=== PATIENT | female | born 1945 | race Caucasian/White ===

== ENCOUNTER 2016-10-19 17:01 | Emergency (ER) | payer MEDICARE, OTHER ==
[~2016-10-19] VITALS: Ht 147.3 cm; Wt 55.8 kg
[~2016-10-19 17:01] MED LIST: AMLO5TAB2 PO; ATOR40TA59 PO; CALC-77 PO; LISI40TA PO; METO25TA4 PO; OMEG1CAP16 PO; RISE35TA3 PO
[2016-10-19 17:05] VITALS: BP 201/88
[2016-10-19] MEDS ORDERED: NAPROXEN 250 MG TABLET PO ONE (17:30)
--- NOTE | 2016-10-19 17:34 | ED.ADGEN ---
Past Medical History Past Medical History: Arthritis, High Cholesterol, Hypertension, URI, Other Additional Past Medical Histor: SARCOID, Past Surgical History: Hysterectomy, Tonsillectomy, Other Additional Past Surgical Histo: MMK,HERNIA,CYST FROM THROAT REMOVED. Alcohol Use: None Drug Use: None Adult General Chief Complaint Chief Complaint: MECHANICAL FALL HPI HPI Patient is a 71 year woman old history of hypertension, hypothyroidism, who presents to the emergency department with a complaint of left hand pain. Patient states that she was on her way to 4:00 mass at [employer] when she tripped on the asphalt and fell forward. She tried to break her fall with her left hand , landing on her left hand and left knee, also striking her nose and glasses against the pavement, she has a small abrasion on her left upper eyelid, and on the bridge of her nose, denies any loss of consciousness, any weakness, numbness , tingling, headache, vision changes, neck pain, or pain in any location aside from her left hand and left knee. Patient states that her fingers "bent back" on her left hand, especially her fifth digit. She noted swelling in her left hand immediately, states that she was able to get up and ambulate without difficulty, although he does have pain in her left knee as stated, she went home and placed ice on her hand without relief. Hasn't taken any medications prior to come to the ED, although she did take her home medications as scheduled today. Noted to be hypertensive upon arousing emergency department, blood pressure 201/88, heart rate is in the 80s, oxygen saturation is 97% on room air respiratory rate is 18 and unlabored. Patient denies any preceding symptoms, no chest pain, shortness breath, no nausea, no vomiting, no other recent injuries or complaints. She does not use any anticoagulants. Patient's tetanus status is up-to-date. Review of Systems Review of Systems Constitutional: Denies fever or chills. [] Eyes: Denies change in visual acuity. [] HENT: Denies nasal congestion or sore throat. [] Respiratory: Denies cough or shortness of breath. [] Cardiovascular: Denies chest pain or edema. [] GI: Denies abdominal pain, nausea, vomiting, bloody stools or diarrhea. [] : Denies dysuria. [] Musculoskeletal: Denies back pain, complaining of pain in the left knee with flexion and extension, and pain and swelling in the left hand. Integument: Denies rash. [] Neurologic: Denies headache, focal weakness or sensory changes. [] Endocrine: Denies polyuria or polydipsia. [] Lymphatic: Denies swollen glands. [] Psychiatric: Denies depression or anxiety. [] Current Medications Current Medications Current Medications Medications (Trade) Dose Ordered Sig/Jessica Start Time Stop Time Status Last Admin Dose Admin Naproxen (Naprosyn) 250 mg 1X ONCE 10/19/16 17:30 10/19/16 17:31 DC 10/19/16 17:52 250 MG Oxycodone/ Acetaminophen (Percocet 7.5/ 325) 1 tab 1X ONCE 10/19/16 18:00 10/19/16 18:01 DC 10/19/16 18:07 1 TAB Allergies Allergies Allergies Coded Allergies Type Severity Reaction Last Updated Verified No Known Allergies Allergy Unknown 08/17/14 Yes Physical Exam Physical Exam Constitutional: Well developed, well nourished, no acute distress, non-toxic appearance. [] HENT: Normocephalic, patient with a small abrasion across the bridge of her nose , and abrasion above the left eye between the eyebrow and eyelid, no involvement of the eye itself, no lacerations, no significant swelling, no hemotympanum or septal hematoma, no dental or mucosal involvement, bilateral external ears normal, oropharynx moist, no oral exudates, nose normal. [] Eyes: PERRLA, EOMI, conjunctiva normal, no discharge. [] Neck: Normal range of motion, no tenderness, supple, no stridor. [] Cardiovascular:Heart rate regular rhythm, no murmur, S1, S2, rubs or gallops. [] Lungs & Thorax: Bilateral breath sounds clear to auscultation, no wheezing, rhonchi, rales. No chest wall tenderness or crepitus. [] Abdomen: Bowel sounds normal, soft, no tenderness, no rebound, rigidity, no guarding, no masses, no pulsatile masses. [] Skin: Warm, dry, no erythema, no rash. [] Back: No tenderness, no CVA tenderness. [] Extremities: Patient with swelling of the third through second digits of the left hand proximally, with limited range of motion due to swelling and pain, no lacerations or abrasions identified, no pain with axial loading, no bony deformities identified, no cyanosis, no clubbing, patient with small abrasion noted on the anterior aspect of the left patella, no tenderness to palpation in the joint space, no swelling or effusion identified. [] Neurologic: Alert and oriented X 3, normal motor function, normal sensory function, no focal deficits noted. [] Psychologic: Affect normal, judgement normal, mood normal. [] Current Patient Data Vital Signs Vital Signs Date Time Temp Pulse Resp B/P (MAP) Pulse Ox O2 Delivery O2 Flow Rate FiO2 10/19/16 17:05 97.6 81 18 201/88 (125) 95 Room Air 97.6 EKG EKG Not indicated. [] Radiology/Procedures Radiology/Procedures Left hand film: Three-view: Patient with fracture that is nondisplaced through the base of the proximal phalanx of digit 3 and 4, no other fractures or other abnormalities identified. As interpreted by me. Left wrist film: Three-view: Fractures above noted again on this image, wrists images do not reveal any evidence of acutely concerning findings, patient noted to have significant degenerative joint disease. As interpreted by me. Left knee film: 4 view: No fracture, subluxation, soft tissue or bony abnormalities identified. As interpreted by me. Course & Med Decision Making Course & Med Decision Making Pertinent Labs and Imaging studies reviewed. (See chart for details) Patient with swelling noted in the left hand, tenderness throughout the hand although she is able to flex and extend fingers at his with pain and some difficulty. No pain with axial loading. No tenderness in the location of the forearm or wrist, tenderness palpation in the left knee, x-rays obtained of the hand, wrist, and knee on the left. I discussed with patient the risk of an occult head injury, with her history of fall with abrasion as stated, patient has no other risk factors, states she understands this possible risks, but at this point we will continue watchful waiting, and if she develops concerning symptoms and reassess need for additional imaging. Patient received naproxen, ice pack in the emergency department awaiting x-rays. X-rays reveal fracture at the base of the proximal phalanx of 3 and 4 on the left hand, no other maladies identified. Fracture nondisplaced. Findings as above were discussed with patient , a splint was applied with good effect, patient was instructed to follow-up with hand surgery for additional evaluation, given contact information for Dr. Jules, to call on Friday or Friday, also instructed to contact her insurance company to ensure that she does have coverage with this provider. We discussed concerning symptoms that prompt return to the emergency department, patient was given Percocet and naproxen in the ED, given clear and detailed medication instructions and precautions. Patient and spouse at bedside voiced understanding and agreement with instructions and plan as stated. Patient discharged home in stable condition with plan as above. Dragon Disclaimer Dragon Disclaimer This electronic medical record was generated, in whole or in part, using a voice recognition dictation system. Departure Impression: Primary Impression: Fracture of proximal phalanx of digit of left hand Disposition: HOME, SELF-CARE Condition: IMPROVED Scripts Docusate Sodium (COLACE) 100 Mg Capsule 100 MG PO PRN DAILY Y for CONSTIPATION, #14 CAP Prov: YOSSI PIERCE DO 10/19/16 Naproxen (NAPROXEN) 250 Mg Tablet 250 MG PO PRN BID Y for PAIN, #10 Prov: YOSSI PIERCE DO 10/19/16 Oxycodone/Apap 5-325 (PERCOCET 5-325 MG TABLET) 1 Each Tablet 1 TAB PO PRN Q6HRS Y for PAIN, #12 TAB 0 Refills Prov: YOSSI PIERCE DO 10/19/16 YOSSI PIERCE DO October 19, 2016 17:34
[2016-10-19] MEDS ORDERED: oxyCODONE/APAP 7.5/325 1 TAB TABLET PO ONE (18:00)
[2016-10-19] MEDS ORDERED: NAPR250T2 PO (18:22)
[2016-10-19] MEDS ORDERED: OXYC-323 PO (18:22)
[2016-10-19] MEDS ORDERED: DOCU-27 PO (18:25)
--- NOTE | 2016-10-20 08:03 | RAD ---
EXAM: Left hand, 3 views; left wrist, 3 views; left knee, 4 views. HISTORY: Trauma. COMPARISON: None. FINDINGS: Left hand and wrist: There are mildly displaced fractures of the bases of the third and fourth proximal phalanges. There is severe degenerative subchondral sclerosis and spurring involving the first carpometacarpal joint. There are chronic fragmented spurs surrounding the joint space. There is a small focus of sclerosis within the distal radial metaphysis, possibly a bone island. Left knee: Frontal, lateral, oblique and sunrise views of the left knee are obtained. There is no fracture, dislocation or subluxation. There is no significant effusion. There is a bone island within the proximal tibial metaphysis. IMPRESSION: 1. Mild displaced fractures of the bases of the left third and fourth proximal phalanges. 2. Severe left first carpometacarpal osteoarthritis with chronic fragmented spurs.
== END 2016-10-19 18:32 | disposition home or self-care (01) ==
LOC: ER 17:09
DX: S62.643A Nondisplaced fracture of proximal phalanx of left middle finger, initial encounter for closed fracture (principal); S62.645A Nondisplaced fracture of proximal phalanx of left ring finger, initial encounter for closed fracture; S00.212A Abrasion of left eyelid and periocular area, initial encounter; S00.31XA Abrasion of nose, initial encounter; M25.562 Pain in left knee; E78.00 Pure hypercholesterolemia, unspecified; I10 Essential (primary) hypertension; M19.90 Unspecified osteoarthritis, unspecified site; Z90.710 Acquired absence of both cervix and uterus; W01.0XXA Fall on same level from slipping, tripping and stumbling without subsequent striking against object, initial encounter; Y93.89 Activity, other specified; Y99.8 Other external cause status; Y92.89 Other specified places as the place of occurrence of the external cause
CPT/HCPCS: 29130; 73110; 73130; 73564; 99284-25

== ENCOUNTER → 2017-01-01 | Outpatient (CLI) | payer OTHER ==
[~2017-01-01] MED LIST changes: +DOCU-109 PO; +NAPR250T2 PO; -OMEG1CAP16 PO; +OMEG1CAP27 PO; +OXYC-323 PO
--- NOTE | 2017-01-01 13:27 | CARD ---
APPROVED REPORT EXAM: Two-dimensional and M-mode echocardiogram with Doppler and color Doppler. Other Information Quality : GoodHR: 61bpm Rhythm : NSR INDICATION PSVT RISK FACTORS Hypertension Hyperlipidemia 2D DIMENSIONS RVDd2.8 (2.9-3.5cm)Left Atrium(2D)3.9 (1.6-4.0cm) IVSd1.1 (0.7-1.1cm)LVDd4.0 (3.9-5.9cm) LVOT Diameter2.1 (1.8-2.4cm)PWd1.1 (0.7-1.1cm) LVDs2.2 (2.5-4.0cm)FS (%) 45.4 % SV54.2 mlLVEF(%)77.3 (>50%) Aortic Valve AoV Peak Jonah.167.3cm/sAoV VTI36.9cm AO Peak GR.11.2mmHgLVOT Peak Jonah.118.0cm/s AO Mean GR.6mmHgAVA (VMAX)2.44cm2 Mitral Valve MV E Npbrjocp381.2cm/sMV DECEL [id number] MV A Yqdmraim99.3cm/sE/A Ratio1.1 MV A Udqjfaai04hy Pulmonary Valve PV Peak Rxkwfmji295.8cm/s Tricuspid Valve TR P. Ioszsnem954cj/sTR Peak Gr.38mmHg Pulmonary Vein S1 Qtlrmrvj86.0cm/sD2 Sdjbegtu01.4cm/s PVa aikfdzye38atzm LEFT VENTRICLE The left ventricle is normal size. There is mild concentric left ventricular hypertrophy. The left ve ntricular systolic function is normal. The Ejection Fraction is 65-70%. There is normal LV segmental wall motion. The left ventricular diastolic function and filling is normal for age. RIGHT VENTRICLE The right ventricle is normal size. There is normal right ventricular wall thickness. The right ventr icular systolic function is normal. ATRIA The left atrium is mildly dilated. The right atrium size is normal. The interatrial septum is intact with no evidence for an atrial septal defect or patent foramen ovale as noted on 2-D or Doppler imagi ng. AORTIC VALVE The aortic valve is mildly sclerotic. The aortic valve is trileaflet. Doppler and Color Flow revealed no significant aortic regurgitation. There is no significant aortic valvular stenosis. MITRAL VALVE Mitral annular calcification is mild. The mitral valve leaflets are thickened. There is no evidence o f mitral valve prolapse. There is no mitral valve stenosis. Doppler and Color Flow revealed trace britt ral regurgitation. TRICUSPID VALVE Doppler and Color Flow revealed mild tricuspid regurgitation. The pulmonary artery systolic pressure is estimated at 41 mmHg. There is mild pulmonary hypertension. PULMONIC VALVE The pulmonary valve is not well visualized but appears to opens well. Doppler and Color Flow revealed trace pulmonic valvular regurgitation. There is no pulmonic valvular stenosis by spectral Doppler. GREAT VESSELS The aortic root is normal in size. The ascending aorta is mildly dilated. The pulmonary artery is nor mal. The IVC is normal in size and collapses >50% with inspiration. PERICARDIAL EFFUSION There is a small loculated posterior pericardial effusion. Critical Notification Critical Value: No <Conclusion> The left ventricular systolic function is normal. The Ejection Fraction is 65-70%. There is normal LV segmental wall motion. Trace mitral regurgitation. Mild tricuspid regurgitation. The pulmonary artery systolic pressure is estimated at 41 mmHg.
== END | disposition home or self-care (01) ==
LOC: ECHO 08:46
PROVIDERS: ATTEND Internal Medicine Cardiovascular Disease
DX: I08.1 Rheumatic disorders of both mitral and tricuspid valves (principal); I47.1 Supraventricular tachycardia; E78.5 Hyperlipidemia, unspecified; I10 Essential (primary) hypertension; I27.2 Other secondary pulmonary hypertension
CPT/HCPCS: 93306

== ENCOUNTER → 2017-04-04 | Outpatient (CLI) | payer OTHER ==
[~2017-04-04] MED LIST changes: -NAPR250T2 PO; +NAPR250T6 PO
--- NOTE | 2017-04-04 15:50 | RAD ---
DATE: 04/04/2017. EXAM: DIGITAL SCREEN BILAT W/CAD. HISTORY: Routine mammographic screening. COMPARISON: 09/15/2014. This study was interpreted with the benefit of Computerized Aided Detection (CAD). FINDINGS: The breast parenchyma is heterogeneously dense, which could reduce sensitivity of mammography. Breast parenchyma level C.. There are no suspicious masses, microcalcifications or architectural distortion. A density superiorly on the left is consistent with an intraparenchymal lymph node and has stable correlate previously. Another slightly superiorly on the left MLO view also has stable correlates given differences in projection. BI-RADS CATEGORY: 2 BENIGN FINDING(S). RECOMMENDED FOLLOW-UP: 12M 12 MONTH FOLLOW-UP. PQRS compliance statement: Patient information was entered into a reminder system with a target due date 04/04/2018 for the next mammogram. Mammography is a sensitive method for finding small breast cancers, but it does not detect them all and is not a substitute for careful clinical examination. A negative mammogram does not negate a clinically suspicious finding and should not result in delay in biopsying a clinically suspicious abnormality. "Our facility is accredited by the [employer] Mammography Program."
== END | disposition home or self-care (01) ==
LOC: MAMMO 08:53
PROVIDERS: ATTEND Family Medicine
DX: Z12.31 Encounter for screening mammogram for malignant neoplasm of breast (principal)
CPT/HCPCS: G0202; 77067

== ENCOUNTER → 2017-08-27 | Outpatient (CLI) | payer OTHER | END | disposition home or self-care (01) | LOC: US 10:20 | DX: R22.0 Localized swelling, mass and lump, head (principal); I10 Essential (primary) hypertension; E78.5 Hyperlipidemia, unspecified | CPT/HCPCS: 76536 ==

== ENCOUNTER → 2019-01-07 | Outpatient (CLI) | payer OTHER ==
[~2019-01-07] MED LIST changes: +AMLO5TAB10 PO; -AMLO5TAB2 PO; +LISI-130 PO; -LISI40TA PO; -OXYC-323 PO; +OXYC1TAB15 PO
--- NOTE | 2019-01-07 11:11 | CARD ---
MR#: [id number] Date of Study: 01/07/2019 Ordering Physician: JASSI ADAMS, Referring Physician: JASSI ADAMS Tech: Fernanda Hines MAGALI APPROVED REPORT EXAM: Two-dimensional and M-mode echocardiogram with Doppler and color Doppler. Other Information Quality : AverageHR: 60bpm Rhythm : NSR INDICATION Arrhythmia 2D DIMENSIONS RVDd3.2 (2.9-3.5cm)Left Atrium(2D)4.4 (1.6-4.0cm) IVSd1.0 (0.7-1.1cm)Aortic Root(2D)2.7 (2.0-3.7cm) LVDd3.9 (3.9-5.9cm)LVOT Diameter1.9 (1.8-2.4cm) PWd1.0 (0.7-1.1cm)LVDs2.7 (2.5-4.0cm) FS (%) 31.2 %SV38.3 ml LVEF(%)60.0 (>50%) Aortic Valve AoV Peak Jonah.133.8cm/sAoV VTI29.9cm AO Peak GR.7.2mmHgLVOT Peak Jonah.99.5cm/s AO Mean GR.3mmHgAVA (VMAX)2.12cm2 TRICIA (VTI)2.20cm2 Mitral Valve MV E Prnoodyz38.7cm/sMV DECEL [id number] MV A Gdfojshz89.2cm/sE/A Ratio1.2 Pulmonary Valve PV Peak Mfwmbbfo41.7cm/s Tricuspid Valve TR P. Ysmsdobt852iy/sRAP ZOHFCIIJ4rmBv TR Peak Gr.02hmXsZSLH35ncAd Pulmonary Vein S1 Tcylggjn72.5cm/sD2 Xztmeqkm04.9cm/s LEFT VENTRICLE The left ventricle is normal size. There is normal left ventricular wall thickness. The left ventricu lar systolic function is normal and the ejection fraction is within normal range. The Ejection Fracti on is 60-65%. There is normal LV segmental wall motion. Transmitral Doppler flow pattern is Grade II- pseudonormal filling dynamics. RIGHT VENTRICLE The right ventricle is normal size. There is normal right ventricular wall thickness. The right ventr icular systolic function is normal. ATRIA The left atrium is mildly dilated. The right atrium size is normal. The interatrial septum is intact with no evidence for an atrial septal defect or patent foramen ovale as noted on 2-D or Doppler imagi ng. AORTIC VALVE The aortic valve is normal in structure and function. The aortic valve is trileaflet. Doppler and Col or Flow revealed no significant aortic regurgitation. There is no significant aortic valvular stenosi s. There is no aortic valvular vegetation. MITRAL VALVE The mitral valve is normal in structure and function. There is no evidence of mitral valve prolapse. There is no mitral valve stenosis. Doppler and Color-flow revealed trace to mild mitral regurgitation . TRICUSPID VALVE The tricuspid valve is normal in structure and function. Doppler and Color Flow revealed trace tricus pid regurgitation. The PA pressure was estimated at 38 mmHg. There is no tricuspid valve prolapse or vegetation. There is no tricuspid valve stenosis. PULMONIC VALVE The pulmonic valve is not well visualized. Doppler and Color Flow revealed no pulmonic valvular regur gitation. There is no pulmonic valvular stenosis. GREAT VESSELS The aortic root is normal in size. The ascending aorta is normal in size. The IVC is normal in size a nd collapses >50% with inspiration. PERICARDIAL EFFUSION There is no evidence of significant pericardial effusion. Critical Notification Critical Value: No <Conclusion> The left ventricle is normal size. The left ventricular systolic function is normal and the ejection fraction is within normal range. The Ejection Fraction is 60-65%. There is no significant aortic valvular stenosis. Doppler and Color Flow revealed no significant aortic regurgitation. Doppler and Color-flow revealed trace to mild mitral regurgitation. Doppler and Color Flow revealed trace tricuspid regurgitation. The PA pressure was estimated at 38 mmHg. Signed by : Julian Valera MD Electronically Approved : 01/07/2019 11:11:37
== END | disposition home or self-care (01) ==
LOC: ECHO 07:51
PROVIDERS: ATTEND Internal Medicine Cardiovascular Disease
DX: I34.0 Nonrheumatic mitral (valve) insufficiency (principal); I47.1 Supraventricular tachycardia
CPT/HCPCS: 93306

== ENCOUNTER 2019-04-18 10:18 | Emergency (ER) | payer OTHER ==
[~2019-04-18] VITALS: Ht 147.3 cm; Wt 56.7 kg
[2019-04-18 10:47] LABS: BASO # 0.1 x10^3/uL (0.0-0.2); BASO % 1 % (0-3); EOS # 0.2 x10^3/uL (0.0-0.7); EOS % 2 % (0-3); HEMATOCRIT 42.9 % (36.0-47.0); HEMOGLOBIN 14.8 g/dL (12.0-15.5); LYMPH # 1.9 x10^3/uL (1.0-4.8); LYMPH % 23 % (24-48); MEAN CORPUSCULAR HEMOGLOBIN 32 pg (25-35); MEAN CORPUSCULAR HGB CONC 34 g/dL (31-37); MEAN CORPUSCULAR VOLUME 94 fL (79-100); MONO # 0.7 x10^3/uL (0.0-1.1); MONO % 9 % (0-9); NEUT # 5.3 x10^3/uL (1.8-7.7); NEUT % 65 % (31-73); PLATELET COUNT 272 x10^3/uL (140-400); RED BLOOD COUNT 4.59 x10^6/uL (3.50-5.40); RED CELL DISTRIBUTION WIDTH 13.6 % (11.5-14.5); WHITE BLOOD COUNT 8.2 x10^3/uL (4.0-11.0)
--- NOTE | 2019-04-18 10:51 | PHYS DOC ---
Past Medical History Past Medical History: Arthritis, High Cholesterol, Hypertension, URI, Other Additional Past Medical Histor: SARCOID, Past Surgical History: Hysterectomy, Tonsillectomy, Other Additional Past Surgical Histo: MMK,HERNIA,CYST FROM THROAT REMOVED. Alcohol Use: None Drug Use: None Adult General Chief Complaint Chief Complaint: RAPID HEART RATE HPI HPI Patient is a 73-year-old female, with a past history of "palpitations", who presents to the emergency department for evaluation. She states she has a history of frequent palpitations, and had fairly steady palpitations yesterday, although did not feel her palpitations as strongly today. She checked her "fit bit", which informed her that her heart rate was high, and thus she came to the emergency department for evaluation. She denies any chest pain, shortness of breath, dizziness or lightheadedness, numbness or weakness. She takes a " blood pressure medication "to help regulate her heartbeat. She has no history of coronary disease. There are no alleviating or exacerbating factors to her symptoms otherwise. Review of Systems Review of Systems Constitutional: Denies fever or chills [] Eyes: Denies change in visual acuity, redness, or eye pain [] HENT: Denies nasal congestion or sore throat [] Respiratory: Denies cough or shortness of breath [] Cardiovascular: No additional information not addressed in HPI [] GI: Denies abdominal pain, nausea, vomiting, bloody stools or diarrhea [] : Denies dysuria or hematuria [] Musculoskeletal: Denies back pain or joint pain [] Integument: Denies rash or skin lesions [] Neurologic: Denies headache, focal weakness or sensory changes [] Endocrine: Denies polyuria or polydipsia [] All other systems were reviewed and found to be within normal limits, except as documented in this note. Current Medications Current Medications Current Medications Medications (Trade) Dose Ordered Sig/Jessica Start Time Stop Time Status Last Admin Dose Admin Aspirin (Children'S Aspirin) 324 mg 1X ONCE 04/18/19 11:00 04/18/19 11:01 DC 04/18/19 10:59 324 MG Lorazepam (Ativan Inj) 2 mg STK-MED ONCE 04/18/19 10:52 04/18/19 10:52 DC Metoprolol Tartrate (Lopressor Vial) 5 mg 1X ONCE 04/18/19 11:15 04/18/19 11:16 DC 04/18/19 11:14 5 MG Potassium Chloride (Klor-Con) 20 meq 1X ONCE 04/18/19 12:00 04/18/19 12:01 DC Sodium Chloride 1,000 ml @ 1,000 mls/hr Q1H 04/18/19 11:00 04/18/19 11:59 DC 04/18/19 10:59 1,000 MLS/HR Allergies Allergies Allergies Coded Allergies Type Severity Reaction Last Updated Verified No Known Drug Allergies 04/18/19 No Physical Exam Physical Exam PHYSICAL EXAM: CONSTITUTIONAL: Well developed, well nourished HEAD: normocephalic, atraumatic EENT: PERRL, EOMI. Conjunctivae normal color, sclerae non-icteric; moist mucous membranes. NECK: Supple, non-tender; no meningismus. LUNGS: Lungs CTA, breathing even and unlabored. Normal air movement. HEART: Regular tachycardia, no murmur CHEST: No deformity; non-tender ABDOMEN: The abdomen is soft, and non-tender, no masses or bruits. EXTREM: Normal ROM; no deformity, no calf tenderness. Normal pulses palpable in all extremities. There is no pedal edema. SKIN: No rash; no diaphoresis NEURO: Alert; normal speech and cognition; CN's grossly intact; strength grossly intact without focal deficit. BACK: No CVA TTP. Current Patient Data Vital Signs Vital Signs Date Time Temp Pulse Resp B/P (MAP) Pulse Ox O2 Delivery O2 Flow Rate FiO2 04/18/19 11:14 115 120/74 04/18/19 10:20 97.5 18 98 Room Air 97.5 Lab Values Laboratory Tests Test 04/18/19 10:30 White Blood Count 8.2 x10^3/uL (4.0-11.0) Red Blood Count 4.59 x10^6/uL (3.50-5.40) Hemoglobin 14.8 g/dL (12.0-15.5) Hematocrit 42.9 % (36.0-47.0) Mean Corpuscular Volume 94 fL (79-100) Mean Corpuscular Hemoglobin 32 pg (25-35) Mean Corpuscular Hemoglobin Concent 34 g/dL (31-37) Red Cell Distribution Width 13.6 % (11.5-14.5) Platelet Count 272 x10^3/uL (140-400) Neutrophils (%) (Auto) 65 % (31-73) Lymphocytes (%) (Auto) 23 % (24-48) L Monocytes (%) (Auto) 9 % (0-9) Eosinophils (%) (Auto) 2 % (0-3) Basophils (%) (Auto) 1 % (0-3) Neutrophils # (Auto) 5.3 x10^3/uL (1.8-7.7) Lymphocytes # (Auto) 1.9 x10^3/uL (1.0-4.8) Monocytes # (Auto) 0.7 x10^3/uL (0.0-1.1) Eosinophils # (Auto) 0.2 x10^3/uL (0.0-0.7) Basophils # (Auto) 0.1 x10^3/uL (0.0-0.2) Sodium Level 140 mmol/L (136-145) Potassium Level 3.4 mmol/L (3.5-5.1) L Chloride Level 102 mmol/L (98-107) Carbon Dioxide Level 28 mmol/L (21-32) Anion Gap 10 (6-14) Blood Urea Nitrogen 13 mg/dL (7-20) Creatinine 1.0 mg/dL (0.6-1.0) Estimated GFR (Cockcroft-Gault) 54.3 BUN/Creatinine Ratio 13 (6-20) Glucose Level 105 mg/dL (70-99) H Calcium Level 10.0 mg/dL (8.5-10.1) Magnesium Level 2.1 mg/dL (1.8-2.4) Total Bilirubin 0.5 mg/dL (0.2-1.0) Aspartate Amino Transferase (AST) 21 U/L (15-37) Alanine Aminotransferase (ALT) 22 U/L (14-59) Alkaline Phosphatase 106 U/L (46-116) Troponin I Quantitative < 0.017 ng/mL (0.000-0.055) WK-Ztt-H-Type Natriuretic Peptide 298 pg/mL (0-124) H Total Protein 7.7 g/dL (6.4-8.2) Albumin 4.0 g/dL (3.4-5.0) Albumin/Globulin Ratio 1.1 (1.0-1.7) Thyroid Stimulating Hormone (TSH) 2.385 uIU/mL (0.358-3.74) Free Thyroxine 1.12 ng/dL (0.76-1.46) Laboratory Tests 04/18/19 10:30 Laboratory Tests 04/18/19 10:30 EKG EKG [] Probable sinus tachycardia at a rate of 136 beats for minute, versus atrial flutter, normal axis, normal intervals, nonspecific ST/T changes. Repeat EKG, done at 11:28 AM after 2 doses of metoprolol 5 mg administered intravenously,, shows normal sinus rhythm at a ventricular rate of 65 bpm with frequent APCs, normal axis, normal intervals, nonspecific ST/T changes are present. Radiology/Procedures Radiology/Procedures [] Course & Med Decision Making Course & Med Decision Making Pertinent Labs and Imaging studies reviewed. (See chart for details) [] 11:40 AM: The patient's condition remained stable. Heart rate is in the 60s. I have asked cardiology to come and evaluate the patient I suspect she is safe for discharge home. 12:15 PM: The patient was seen by cardiology, according to the records she is on Cardizem 240 daily, is not currently taking metoprolol. The patient is uncer tain of her medications. I discussed the case with cardiology who would like to start the patient on 25 mg of metoprolol twice daily and the patient is safe to be discharged. Home arrangements will be made for a Holter monitor. The importance of close follow-up and return precautions were discussed with the patient. Dragon Disclaimer Dragon Disclaimer This electronic medical record was generated, in whole or in part, using a voice recognition dictation system. Departure Departure Impression: Primary Impression: Palpitations Disposition: 01 HOME, SELF-CARE Condition: STABLE Referrals: FRANCK MELGOZA MD (PCP) JASSI ADAMS MD Patient Instructions: Palpitations Additional Instructions: Continue your previously prescribed medications. Return to medical care for any new or worsening symptoms, vomiting, shortness breath, dizziness, lightheadedness, or any other new or concerning symptoms. Scripts Metoprolol Tartrate (METOPROLOL TARTRATE) 25 Mg Tablet 1 TAB PO BID, #60 TAB 2 Refills Prov: JERRICA GOLDSTEIN MD 04/18/19 JERRICA GOLDSTEIN MD Apr 18, 2019 10:51
[2019-04-18 10:53] LABS: GFR 54.3; POTASSIUM 3.4 mmol/L (3.5-5.1)
[2019-04-18 10:59] LABS: ALBUMIN/GLOBULIN RATIO 1.1 (1.0-1.7); MAGNESIUM 2.1 mg/dL (1.8-2.4); TOTAL BILIRUBIN 0.5 mg/dL (0.2-1.0); TOTAL PROTEIN 7.7 g/dL (6.4-8.2)
[2019-04-18] MEDS ORDERED: ASPIRIN CHEWABLE 81 MG TABLET. PO ONE (11:00)
[2019-04-18] MEDS ORDERED: METOPROLOL TARTRATE 5 MG/5 ML VIAL. IVP ONE ×2 (11:00→11:15)
[2019-04-18] MEDS ORDERED: IV NORMAL SALINE 1000ML BAG 1,000 ML IV SCH (11:00)
[2019-04-18 11:24] LABS: FREE T4 1.12 ng/dL (0.76-1.46); THYROID STIM HORMONE (TSH) 2.385 uIU/mL (0.358-3.74)
[2019-04-18 12:00] VITALS: BP 136/63
[2019-04-18] MEDS ORDERED: POTASSIUM CHLORIDE 20 MEQ TABLET.ER. PO ONE (12:00)
--- NOTE | 2019-04-18 12:07 | RAD ---
EXAM: CHEST ONE VIEW. HISTORY: Palpitations. COMPARISON: None. FINDINGS: A frontal view of the chest is obtained. The lungs are expanded to the 11th posterior ribs. There are no confluent infiltrates. Interstitial opacities in the bases may indicate atelectasis or scarring. There is no pneumothorax or pleural effusion. The heart is moderately enlarged. There are atherosclerotic calcifications of the aorta. IMPRESSION: 1. Moderate cardiomegaly. 2. Hyperinflation. Correlate for chronic obstructive pulmonary disease. Electronically signed by: Prachi Dao MD (04/18/2019 12:05 PM) [facility]
[2019-04-18] MEDS ORDERED: METO25TA4 PO (12:17)
--- NOTE | 2019-04-18 12:24 | PDOC2 ---
CARDIOLOGY CONSULT NOTE CHEIF COMPLAINT: Palpitations HPI: Very pleasant 73-year-old woman came into the hospital today for evaluation of palpitations. She was seen by our office approximately 2 months ago and at that time was doing quite well. She had denied any specific cardiac symptoms. She does have a rare palpitation episode about once or twice a year and this usually resolves with vagal maneuvers. When she arrived to the ER today she was noted to have heart rates in the 130s suggestive of either an atrial tachycardia or sinus tachycardia. This responded to metoprolol therapy. She denies any recent changes to her medications, diet changes or any increased stressors. The patient and her recently moved to a assisted living facility. She otherwise denies any functional problems at home. PMHX: 1. Paroxysmal supraventricular tachycardia 2. Hypertension 3. Dyslipidemia SOCHX: She is . Denies any alcohol, tobacco or illicit drug use. She is retired. FAMHX: Noncontributory CURRENT MEDS: Current Medications Medications (Trade) Dose Ordered Sig/Jessica Route PRN Reason Start Time Stop Time Status Last Admin Dose Admin Aspirin (Children'S Aspirin) 324 mg 1X ONCE PO 04/18/19 11:00 04/18/19 11:01 DC 04/18/19 10:59 Metoprolol Tartrate (Lopressor Vial) 5 mg 1X ONCE IVP 04/18/19 11:00 04/18/19 11:01 DC 04/18/19 11:00 Sodium Chloride 1,000 ml @ 1,000 mls/hr Q1H IV 04/18/19 11:00 04/18/19 11:59 DC 04/18/19 10:59 Lorazepam (Ativan Inj) 1 mg 1X ONCE IVP 04/18/19 11:15 04/18/19 11:16 DC 04/18/19 11:00 Metoprolol Tartrate (Lopressor Vial) 5 mg 1X ONCE IVP 04/18/19 11:15 04/18/19 11:16 DC 04/18/19 11:14 ALLERGIES: Allergies Coded Allergies Type Severity Reaction Last Updated Verified No Known Drug Allergies 04/18/19 No ROS: Negative unless otherwise mentioned above in history of present illness PHYSICAL EXAM: Vital Signs/I&O: Vital Signs Date Time Temp Pulse Resp B/P (MAP) Pulse Ox O2 Delivery O2 Flow Rate FiO2 04/18/19 11:14 115 120/74 04/18/19 10:20 97.5 18 98 Room Air 97.5 Physical Exam: The patient appeared well nourished and normally developed. Head exam is unremarkable. No scleral icterus or corneal arcus noted. Neck is without jugular venous distension, thyromegaly, or carotid bruits. Carotid upstrokes are brisk bilaterally. Lungs are clear to auscultation and percussion. Cardiac exam reveals the PMI to be normally sized and situated. Rhythm is regular. First and second heart sounds normal. No murmurs, rubs or gallops. Abdominal exam reveals normal bowel sounds, no masses, no organomegaly and no aortic enlargement. Extremities are nonedematous and both femoral and pedal pulses are normal. Msk: No traumua Neuro: No focal deficits DIAGNOSTIC TESTING: EKG initially demonstrated probable atrial tachycardia Repeat EKG with sinus rhythm and PACs Previous echocardiogram reviewed no obvious pathology noted Labs are otherwise grossly unremarkable ASSESSMENT: 1. SVT, paroxysmal cannot rule out atrial tachycardia PLAN: 1. Continue her home diltiazem therapy. We will plan for initiation of metoprolol 25 mg by mouth twice a day. We will have a event monitor sent out to her house and follow-up with her after her monitoring has been completed. Case discussed with ER physician JULIETTE Fraser MD Apr 18, 2019 12:24
--- NOTE | 2019-04-19 07:23 | EKG ---
[facility] [address] [place] [address] Test Date: 2019-04-18 Test Time: 10:25:22 Pat Name: MARISELA SEAMAN Department: Room: Gender: F Customer Success Director: : 1945 Requested By: JERRICA GOLDSTEIN Order Number: [id number] Reading MD: Mitch Howard Measurements Intervals [place] Rate: 136 P: -90 IN: 84 QRS: 13 QRSD: 86 T: 12 QT: 304 QTc: 460 Interpretive Statements SUPRAVENTRICULAR TACHYCARDIA ST & T ABNORMALITY, CONSIDER INFERIOR ISCHEMIA OR LEFT VENTRICULAR STRAIN ABNORMAL ECG Electronically Signed On 04-19-2019 14:16:01 PERSONAL PROPERTY ASSESSOR by Mitch Howard
--- NOTE | 2019-04-19 07:24 | EKG ---
[facility] [address] [place] [address] Test Date: 2019-04-18 Test Time: 11:28:39 Pat Name: MARISELA SEAMAN Department: Room: Gender: F Strategic Partnership Manager: : 1945 Requested By: JERRICA GOLDSTEIN Order Number: [id number] Reading MD: Mitch Howard Measurements Intervals [place] Rate: 64 P: 90 [place]: 160 QRS: 14 QRSD: 86 T: 26 QT: 406 QTc: 422 Interpretive Statements SINUS RHYTHM ATRIAL PREMATURE COMPLEX(ES) ST & T ABNORMALITY, CONSIDER ANTERIOR ISCHEMIA OR LEFT VENTRICULAR STRAIN ABNORMAL ECG Electronically Signed On 04-19-2019 14:25:08 AUTOMOTIVE ACCESSORY INSTALLER by Mitch Howard
--- NOTE | 2019-04-19 07:26 | EKG ---
[facility] [address] [place] [address] Test Date: 2019-04-18 Test Time: 11:30:44 Pat Name: MARISELA SEAMAN Department: Room: Gender: F Logistics Management Specialist: : 1945 Requested By: JERRICA GOLDSTEIN Order Number: [id number] Reading MD: Mitch Howard Measurements Intervals [place] Rate: 69 P: [place]: QRS: 5 QRSD: 86 T: 28 QT: 400 QTc: 434 Interpretive Statements SINUS RHYTHM ATRIAL PREMATURE COMPLEXES T ABNORMALITY IN ANTERIOR LEADS NON SPECIFIC ST DEPRESSION ABNORMAL ECG Electronically Signed On 04-19-2019 14:25:27 GROUP CIO by Mitch Howard
== END 2019-04-18 12:38 | disposition home or self-care (01) ==
LOC: ER 10:18
DX: R00.2 Palpitations (principal); M19.90 Unspecified osteoarthritis, unspecified site; E78.00 Pure hypercholesterolemia, unspecified; I10 Essential (primary) hypertension
CPT/HCPCS: 36415; 71045; 80053; 83735; 83880; 84439; 84443; 84484; 85025; 93005; 96374; 96375; 99285; J2060; J3490; J7030

== ENCOUNTER → 2019-05-07 | Outpatient (CLI) | payer OTHER ==
[2019-04-18 12:00] VITALS: BP 136/63
[~2019-05-07] MED LIST changes: +BUPIVACAINE MPF 0.5% 10 ML VIAL for KCIC. IM ONE; +CONTRAST GIVEN. MC PRN; +IOHEXOL 300 MG/ML 50 ML VIAL. INT ART ONE; +LIDOCAINE 1% Multi-Dose 20 ML VIAL. ID ONE; +methylPREDNISolone SOD SUCC PF 40 MG/ML VIAL. IM ONE
--- NOTE | 2019-05-07 17:27 | KCIC ---
ARTHROCENT MJR JT ASP/INJ LEFT History: Pain Technique: Patient was informed of the risks to include pain, infection, bleeding, nerve or blood vessel injury, allergic reaction. All questions were answered. Patient signed a written consent form for left hip injection for pain therapy. Patient was placed in supine position on the fluoroscopy table. The external skin site overlying left hip was prepped and draped in the usual sterile fashion. Betadine was utilized for cleansing solution. 1% lidocaine was utilized for local anesthesia to the depth of the bone. 22-gauge spinal needle was advanced under fluoroscopy to depth of the bone. Omnipaque contrast was utilized to confirm intra-articular location. Image was saved. Mixture of 4 cc bupivacaine and 80 mg Depo-Medrol were injected during fluoroscopic visualization. Needle was removed. There were no immediate complications. Bandage was applied. Fluoroscopy time 46 seconds. Impression: 1. Successful left hip steroid injection. Electronically signed by: Al Frausto DO (05/07/2019 5:24 PM) [facility]
== END | disposition home or self-care (01) ==
LOC: KCIC 14:12
PROVIDERS: ATTEND Orthopaedic Surgery Sports Medicine
DX: M16.12 Unilateral primary osteoarthritis, left hip (principal)
CPT/HCPCS: 20610; 77002; J2920; Q9967

== ENCOUNTER → 2019-10-25 | Outpatient (CLI) | payer OTHER ==
[~2019-10-25] MED LIST changes: -BUPIVACAINE MPF 0.5% 10 ML VIAL for KCIC. IM ONE; -CONTRAST GIVEN. MC PRN; -IOHEXOL 300 MG/ML 50 ML VIAL. INT ART ONE; -LIDOCAINE 1% Multi-Dose 20 ML VIAL. ID ONE; -methylPREDNISolone SOD SUCC PF 40 MG/ML VIAL. IM ONE
--- NOTE | 2019-10-25 14:03 | CARD ---
MR#: [id number] Date of Study: 10/25/2019 Ordering Physician: JASSI HOWARD, Referring Physician: JASSI HOWARD, Tech: APPROVED REPORT PROCEDURE: Successful implantation of Medtronic Reveal Linq loop recorder INDICATIONS: Assess arrhythmia burden in a patient with paroxysmal supraventricular tachycardia presenting with re current palpitations PROCEDURE DETAILS: An informed consent was obtained from patient. Patient was brought to the procedure suite and her le ft chest and shoulder were prepped and draped in the usual fashion. 20 mL of 2% lidocaine was infilt rated into the skin and subcutaneous tissues for local anesthesia. An incision was made in the left fourth intercostal space 1 inch from midsternal line and using the introducer provided with the kit a track was created in subcutaneous tissue. Subsequently, with the help of the deployer provided with the kit, a Medtronic Reveal Linq loop recorder serial number [id number] was placed in the subcutaneous tissue. The incision was closed iwith steristrips. Hemostasis was secured. Patient tolerated the procedure well. There were no immediate complications. At the end of procedure, the device showed s ensing amplitude of 0.23 mV. CONCLUSION: Successful implantation of Medtronic Reveal Linq loop recorder to assess arrhythmia burden in a patie nt with paroxysmal supraventricular tachycardia. Signed by : Jassi Howard, Electronically Approved : 10/25/2019 14:03:11
== END | disposition home or self-care (01) ==
LOC: LINQ 11:14
PROVIDERS: ATTEND Internal Medicine Cardiovascular Disease
DX: I47.1 Supraventricular tachycardia (principal); R00.2 Palpitations
CPT/HCPCS: 33285; C1764

== ENCOUNTER → 2020-01-07 | Outpatient (CLI) | payer MEDICARE ==
[~2020-01-07] MED LIST changes: +REGADENOSON 0.4 MG/5 ML DISP.SYRIN. IV ONE
--- NOTE | 2020-01-08 12:01 | CARD ---
MR#: [id number] Date of Study: 01/07/2020 Ordering Physician: JASSI ADAMS, Referring Physician: JASSI ADAMS Tech: Shanna Danielson RDCS APPROVED REPORT EXAM: Two-dimensional and M-mode echocardiogram with Doppler and color Doppler. Other Information Quality : Good INDICATION PSVT 2D DIMENSIONS RVDd2.7 (2.9-3.5cm)Left Atrium(2D)4.1 (1.6-4.0cm) IVSd1.0 (0.7-1.1cm)Aortic Root(2D)2.7 (2.0-3.7cm) LVDd4.1 (3.9-5.9cm)LVOT Diameter2.0 (1.8-2.4cm) PWd0.9 (0.7-1.1cm)LVDs2.6 (2.5-4.0cm) FS (%) 35.8 %SV49.0 ml LVEF(%)65.9 (>50%) Aortic Valve AoV Peak Jonah.110.0cm/sAoV VTI21.8cm AO Peak GR.4.8mmHgLVOT Peak Jonah.94.1cm/s LVOT VTI 19.23cmAO Mean GR.2mmHg TRICIA (VMAX)2.88he7STF (VTI)2.73cm2 Mitral Valve MV E Pecdwnwd64.5cm/sMV DECEL QVBE509cd MV A Gmotvwhj97.4cm/sMV DME86ts E/A Ratio1.2MVA (PHT)4.82cm2 TDI E/Lateral E'16.6E/Medial E'22.6 Tricuspid Valve TR P. Quawhymj910qm/sRAP JCUMWPUF1qzNx TR Peak Gr.03ulFkVPEH24yzXh Pulmonary Vein S1 Obhrxpvv52.1cm/sD2 Wxmpudfo31.2cm/s LEFT VENTRICLE The left ventricle is normal size. There is normal left ventricular wall thickness. The left ventricu lar systolic function is normal and the ejection fraction is within normal range. The Ejection Fracti on is 55-60%. There is normal LV segmental wall motion. Transmitral Doppler flow pattern is Grade I-a bnormal relaxation pattern. RIGHT VENTRICLE The right ventricle is normal size. The right ventricular systolic function is normal. ATRIA The left atrium is mildly dilated. The right atrium size is normal. The interatrial septum is intact with no evidence for an atrial septal defect or patent foramen ovale as noted on 2-D or Doppler imagi ng. AORTIC VALVE The aortic valve is not well visualized. Doppler and Color Flow revealed no significant aortic regurg itation. There is no significant aortic valvular stenosis. MITRAL VALVE The mitral valve is calcified but opens well. Mitral annular calcification is mild. There is no evide nce of mitral valve prolapse. There is no mitral valve stenosis. Doppler and Color-flow revealed mild mitral regurgitation. TRICUSPID VALVE The tricuspid valve is normal in structure and function. Doppler and Color Flow revealed trace tricus pid regurgitation. There is mild pulmonary hypertension. The PA pressure was estimated at 37 mmHg. Th ere is no tricuspid valve stenosis. PULMONIC VALVE The pulmonic valve is not well visualized. Doppler and Color Flow revealed no pulmonic valvular regur gitation. There is no pulmonic valvular stenosis. GREAT VESSELS The aortic root is normal in size. The ascending aorta is moderately dilated at 3.9 cm. The IVC is no rmal in size and collapses >50% with inspiration. PERICARDIAL EFFUSION There is a small circumferential partially fibrinous pericardial effusion which appears stable compar ed to one year. Critical Notification Critical Value: No <Conclusion> The left ventricular systolic function is normal and the ejection fraction is within normal range. Th e Ejection Fraction is 55-60%. There is normal LV segmental wall motion. The ascending aorta is moderately dilated at 3.9 cm. There is a small circumferential partially fibrinous pericardial effusion which appears stable comp ared to one year. Signed by : Dmitriy De La Rosa, Electronically Approved : 01/08/2020 12:01:15
--- NOTE | 2020-01-09 11:52 | RAD ---
MR#: [id number] Date of Study: 01/07/2020 Ordering Physician: JASSI ADAMS Referring Physician: GRACE RAMÍREZ Tech: RT Rosalio Mckeon) (N) APPROVED REPORT Test Type: Pharmacological Stress Nurse/Tech: Lars Saldana RN Test Indications: PSVT Cardiac History: HTN, See EMR. Medications: See EMR. Medical History: See EMR. Resting ECG: SR Resting Heart Rate: 61 bpm Resting Blood Pressure: 146/75mmHg Pretest Chest Pain: No chest pain Nurse/Tech Notes Lungs CTA, Heart tones regular. Consent: The procedure was explained to the patient in lay terms. Informed consent was witnessed. Reji eout was entered into [employer] History and Stress Test performed by RT Noe (R) (N) Pharm. Details Pharmacologic stress testing was performed using 0.4mg per 5ml of regadenoson given intravenously ove r 7-10 seconds. Stress Symptoms No chest pain or symptoms. POST EXERCISE Reason for Termination: Infusion complete Max HR: 85 bpm Max Blood Pressure: 152/74mmHg Blood Pressure response to exercise: Normal blood pressure response during stress. Heart Rate response to exercise: WNL Chest Pain: No. Arrhythmia: No. ST Change: No. INTERPRETATION Stress EKG Conclusion: No evidence of stress induced EKG changes. Imaging Protocol IMAGE PROTOCOL: Rest Tc-99m/stress Tc-99m 1 day Rest: Stress: Viability: Radiopharm.Tc99m NnociwaoeIm09a Sestamibi Dose10.5mCi 31.5mCi Duration 13.5min. 13.5min. Img Date 01/07/2020 01/07/2020 Inj-Img Hjcf31icw. 60min. Rest Admin Site:IV - Right AntecubitalAdministrator:RT Linda (Jude)(N) Stress Admin Site: IV - Right AntecubitalAdministrator: RT Rosalio Liu)(N) STRESS DATA End Diast. Vol.35.0mlLVEDV index BSA24.0ml End Syst. Vol.3.0mlLVESV index BSA2.0ml Myocardial Mass69.0gEject. Ciluyrzs18.0% Stress Scores Regional WT0.00Summed WT0.00 Regional WM0.00Summed WM0.00 The rest and stress images show normal perfusion, normal contraction and thickening. LV Perf. Quant 17 Seg. SSS0.00 17 Seg. SRS0.00 17 Seg. SDS0.00 Stress Defect Extent (% LAD)0.00Rest Defect Extent (% LAD)0.00Rev. Defect Extent (% LAD)0.00 Stress Defect Extent (% LCX) 0.00Rest Defect Extent (% LCX)0.00Rev. Defect Extent (% LCX)0.00 Stress Defect Extent (% RCA)0.00Rest Defect Extent (% RCA)0.00Rev. Defect Extent (% RCA)0.00 Stress Defect Extent (% ZOILA)0.00Rest Defect Extent (% ZOILA)0.00Rev. Defect Extent (% ZOILA)0.00 Other Information Quality:Good Risk Assessment: Low Risk Conclusion 1. No evidence of EKG changes with stress testing. 2. Normal perfusion at stress/rest. 3. Low risk study. 4. EF > 60%. Signed by : Dmitriy De La Rosa, Electronically Approved : 01/09/2020 11:51:51
== END | disposition home or self-care (01) ==
LOC: NM 09:53
PROVIDERS: ATTEND Internal Medicine Cardiovascular Disease
DX: I34.0 Nonrheumatic mitral (valve) insufficiency (principal); I27.20 Pulmonary hypertension, unspecified; I47.1 Supraventricular tachycardia; I31.3 Pericardial effusion (noninflammatory); I10 Essential (primary) hypertension
CPT/HCPCS: 78452; 93017; 93306; A9500; J2785

== ENCOUNTER → 2021-01-03 | Outpatient (CLI) | payer MEDICARE ==
[~2021-01-03] MED LIST changes: +AMLO-186 PO; -AMLO5TAB10 PO; +NAPR-699 PO; -NAPR250T6 PO; -REGADENOSON 0.4 MG/5 ML DISP.SYRIN. IV ONE
--- NOTE | 2021-01-03 17:10 | CARD ---
MR#: [id number] Date of Study: 01/03/2021 Ordering Physician: JASSI HOWARD, Referring Physician: JASSI HOWARD, Tech: Hue Roberts [facility] APPROVED REPORT EXAM: Two-dimensional and M-mode echocardiogram with Doppler and color Doppler. Other Information Quality : AverageHR: 56bpm INDICATION Paroxymal Supraventricular Tachycardia RISK FACTORS Hypertension Hyperlipidemia 2D DIMENSIONS RVDd3.1 (2.9-3.5cm)Left Atrium(2D)4.0 (1.6-4.0cm) IVSd0.9 (0.7-1.1cm)Aortic Root(2D)3.0 (2.0-3.7cm) LVDd4.9 (3.9-5.9cm)LVOT Diameter1.9 (1.8-2.4cm) PWd1.0 (0.7-1.1cm)LVDs2.7 (2.5-4.0cm) FS (%) 44.4 %SV84.2 ml LVEF(%)75.5 (>50%) Aortic Valve AoV Peak Jonah.132.4cm/sAoV VTI34.3cm AO Peak GR.7.0mmHgLVOT Peak Jonah.80.4cm/s LVOT VTI 20.62cmAO Mean GR.4mmHg TRICIA (VMAX)1.17ap9HCT (VTI)1.76cm2 Mitral Valve MV E Qelhgfoy487.2cm/sMV E Peak Gr.108mmHg MV DECEL GMOU976hzSV A Csizxikq71.4cm/s MV BHR07qwM/A Ratio1.5 MVA (PHT)5.36cm2 TDI E/Lateral E'13.8E/Medial E'10.5 Pulmonary Valve PV Peak Nshlxolo42.0cm/sPV Peak Grad.4mmHg Tricuspid Valve TR P. Uoxeynpw507zp/sRAP MOOMMLVX3mwWw TR Peak Gr.64alMmHIWH47pkOz LEFT VENTRICLE The left ventricle is normal size. There is normal left ventricular wall thickness. The left ventricu lar systolic function is normal. The ejection fraction is 55-60%. There is normal LV segmental wall m otion. Transmitral Doppler flow pattern is Grade II-pseudonormal filling dynamics. RIGHT VENTRICLE The right ventricle is normal size. There is normal right ventricular wall thickness. The right ventr icular systolic function is normal. ATRIA The left atrium is moderately dilated. The right atrium is moderately dilated. The interatrial septum is intact with no evidence for an atrial septal defect or patent foramen ovale as noted on 2-D or Do ppler imaging. AORTIC VALVE The aortic valve is not well visualized. Doppler and Color Flow revealed trace aortic regurgitation. There is no significant aortic valvular stenosis. Calculated aortic valve area is 1.80 cm2 with maxim um pressure gradient of 9 mmHg and mean pressure gradient of 4 mmHg. MITRAL VALVE The mitral valve is normal in structure and function. There is no evidence of mitral valve prolapse. There is no mitral valve stenosis. Doppler and Color-flow revealed mild mitral regurgitation. TRICUSPID VALVE The tricuspid valve is normal in structure and function. Doppler and Color Flow revealed trace tricus pid regurgitation with an estimated PAP of 40 mmHg. There is no tricuspid valve stenosis. PULMONIC VALVE The pulmonic valve is not well visualized. Doppler and Color Flow revealed no pulmonic valvular regur gitation. GREAT VESSELS The aortic root is normal in size. The ascending aorta is Mildly dilated measuring 3.6 cm. The IVC is normal in size and collapses >50% with inspiration. PERICARDIAL EFFUSION There is no evidence of significant pericardial effusion. Critical Notification Critical Value: No <Conclusion> The left ventricular systolic function is normal. The ejection fraction is 55-60%. There is normal LV segmental wall motion. Transmitral Doppler flow pattern is Grade II-pseudonormal filling dynamics. Mild mitral regurgitation. Trace tricuspid regurgitation with an estimated PAP of 40 mmHg. There is no evidence of significant pericardial effusion. Signed by : Jassi Howard, Electronically Approved : 01/03/2021 17:10:26
== END ==
LOC: ECHO 08:35
PROVIDERS: ATTEND Internal Medicine Cardiovascular Disease
DX: I34.0 Nonrheumatic mitral (valve) insufficiency (principal); I47.1 Supraventricular tachycardia
CPT/HCPCS: 93306

== ENCOUNTER → 2021-02-16 | Outpatient (CLI) | payer MEDICARE ==
[~2021-02-16] MED LIST changes: +BUPIVACAINE MPF 0.5% 10 ML VIAL. INT ART ONE; +IOHEXOL 300 MG/ML 50 ML VIAL. INT ART ONE; +LIDOCAINE 1% Multi-Dose 20 ML VIAL. ID ONE; +TRIAMCINOLONE ACETONIDE 40 MG/ML VIAL. INT ART ONE
--- NOTE | 2021-02-19 16:20 | KCIC ---
IR ARTHROCENT INT JT ASP/INJ LT History: Pain Technique: Patient was informed of the risks to include pain, infection, bleeding, allergic reaction. All questions were answered. Patient signed a written consent form for left hip injection for pain t herapy. Patient was placed in supine position on the fluoroscopy table. The external skin site overly ing left hip was prepped and draped in the usual sterile fashion. Betadine was utilized for cleansing solution. 1% lidocaine was utilized for local anesthesia to the depth of the bone. 22-gauge spinal n eedle was advanced under fluoroscopy to depth of the bone. Small amount contrast was injected confirm ing intra-articular location. Mixture of 4 cc anesthetic and 40 mg Kenalog were injected during fluor oscopic visualization. Needle was removed. There were no immediate complications. Bandage was applied . Fluoroscopy time 21 seconds Fluoroscopic images: 1. Impression: 1. Successful left hip steroid injection. Electronically signed by: Al Frausto DO (02/19/2021 4:18 PM) [facility]
== END | disposition home or self-care (01) ==
LOC: KCIC 14:46
PROVIDERS: ATTEND Orthopaedic Surgery
DX: M16.12 Unilateral primary osteoarthritis, left hip (principal); I10 Essential (primary) hypertension; E78.00 Pure hypercholesterolemia, unspecified; M81.0 Age-related osteoporosis without current pathological fracture; Z79.899 Other long term (current) drug therapy; Z90.710 Acquired absence of both cervix and uterus; Z98.890 Other specified postprocedural states
CPT/HCPCS: 20610; 77002; J3301; J3490; Q9967

== ENCOUNTER → 2021-04-11 | Outpatient (CLI) | payer MEDICARE ==
[~2021-04-11] MED LIST changes: -BUPIVACAINE MPF 0.5% 10 ML VIAL. INT ART ONE; -IOHEXOL 300 MG/ML 50 ML VIAL. INT ART ONE; -LIDOCAINE 1% Multi-Dose 20 ML VIAL. ID ONE; -TRIAMCINOLONE ACETONIDE 40 MG/ML VIAL. INT ART ONE
--- NOTE | 2021-04-11 14:03 | KCIC ---
EXAM: Neck sonogram. HISTORY: Left-sided neck lymphadenopathy. TECHNIQUE: Sonographic imaging of the neck was performed. COMPARISON: None. FINDINGS: There is no suspicious sonographic finding within the superior left neck at the site of rep orted palpable concern. The parotid gland is partially visualized in this location. IMPRESSION: No suspicious sonographic finding at the site of palpable concern. Continued clinical fol low-up of palpable abnormalities is recommended. Cross sectional imaging can be performed if there is concern for a sonographically occult lesion. Electronically signed by: Aylin Glover MD (04/11/2021 2:00 PM) [id number]
== END ==
LOC: KCIC US 13:12
PROVIDERS: ATTEND Nurse Practitioner Family
DX: R59.0 Localized enlarged lymph nodes (principal)
CPT/HCPCS: 76536